=== PATIENT | female | born 2000 | race Caucasian/White ===

== ENCOUNTER 2019-04-03 17:55 | Emergency (ER) | payer SELFPAY ==
[2019-04-03 18:02] VITALS: BP 127/95; PULSE 92; TEMP 98.4; BMI 56.9
--- NOTE | 2019-04-03 18:12 | PDOC ---
Rapid Medical Evaluation Chief Complaint: Pain, Acute Time Seen by Provider: 04/03/19 18:10 Medical Evaluation: Allergies Allergy/AdvReac Type Severity Reaction Status Date / Time No Known Allergies Allergy Verified 11/05/11 21:09 Vital Signs Temp Pulse Resp BP Pulse Ox 98.4 F 92 H 18 127/95 98 04/03/19 18:00 04/03/19 18:00 04/03/19 18:00 04/03/19 18:00 04/03/19 18:00 04/03/19 18:11 Pt c/o: low abd cramping, n/v , unsure if pt on brief exam: vss, mild suprapaubic tenderness Pt ordered for: ua, ucx, upreg pt to proceed to the ED Discharge Disposition - Diagnosis Nausea & vomiting - Discharge Dispostion Condition at time of disposition: Stable - Referrals - Patient Instructions - Post Discharge Activity
[2019-04-03 19:22] LABS: EPI CELLS 3.2 /HPF (0-5/HPF); HYALINE CASTS 24 /lpf (0-8); PH,URINE 5.5 (5.0-8.0); URINE APPEARANCE CLOUDY; URINE BACTERIA 1525.3 /hpf (NEGATIVE); URINE BILIRUBIN NEGATIVE (NEGATIVE); URINE COLOR YELLOW; URINE GLUCOSE (UA) NEGATIVE (NEGATIVE); URINE KETONE NEGATIVE (NEGATIVE); URINE LEUK ESTERASE 2+ (NEGATIVE); URINE NITRITE POSITIVE (NEGATIVE); URINE PROTEIN 1+ (NEGATIVE); URINE RBC 5 /hpf (0-4); URINE UROBILINOGEN 0.2 mg/dL (0.2-1.0); URINE WBC 130 /hpf (0-5)
--- NOTE | 2019-04-03 19:54 | PDOC ---
History of Present Illness - General Chief Complaint: Pain, Acute Stated Complaint: ABD PAIN Time Seen by Provider: 04/03/19 18:10 Past History - Past Medical History Allergies/Adverse Reactions: Allergies Allergy/AdvReac Type Severity Reaction Status Date / Time No Known Allergies Allergy Verified 11/05/11 21:09 Home Medications: Ambulatory Orders Nitrofurantoin Macrocrystal [Nitrofurantoin] 100 mg PO BID 7 Days #14 capsule Phenazopyridine HCl [Pyridium] 100 mg PO TID #9 tablet 04/03/19 COPD: No Disorders: Yes (H/O UTI /VAGINAL DISCHARGE) - Surgical History Cholecystectomy: No - Immunization History Immunization Up to Date: No - Psycho Social/Smoking Cessation Hx Smoking Status: No Smoking History: Never smoked Have you smoked in the past 12 months: No Number of Cigarettes Smoked Daily: 0 Information on smoking cessation initiated: No Hx Alcohol Use: No Drug/Substance Use Hx: No *Physical Exam - Vital Signs Last Vital Signs Temp Pulse Resp BP Pulse Ox 98.4 F 92 H 18 127/95 98 04/03/19 18:00 04/03/19 18:00 04/03/19 18:00 04/03/19 18:00 04/03/19 18:00 ED Treatment Course - ADDITIONAL ORDERS Additional order review: Laboratory Results 04/03/19 04/03/19 19:00 19:00 Urine Color Yellow Urine Appearance Cloudy Urine pH 5.5 Ur Specific [place] 1.010 Urine Protein 1+ H Urine Glucose (UA) Negative Urine Ketones Negative Urine Blood 1+ H Urine Nitrite Positive H Urine Bilirubin Negative Urine Urobilinogen 0.2 Ur Leukocyte Esterase 2+ H Urine WBC (Auto) 130 Urine RBC (Auto) 5 Urine Casts (Auto) 24 U Epithel Cells (Auto) 3.2 Urine Bacteria (Auto) 1525.3 Urine HCG, Qual Negative Discharge - Discharge Information Problems reviewed: Yes Clinical Impression/Diagnosis: Cystitis Condition: Stable Disposition: HOME - Admission No - Additional Discharge Information Prescriptions: Nitrofurantoin Macrocrystal [Nitrofurantoin] 100 mg PO BID 7 Days #14 capsule Phenazopyridine HCl [Pyridium] 100 mg PO TID #9 tablet - Follow up/Referral - Patient Discharge Instructions Patient Printed Discharge Instructions: DI for Acute Cystitis Additional Instructions: You were seen in the ER for abdominal pain and nausea. Your urine showed a urinary tract infection. We are diagnosing you with a cystitis - an infection that affects the bladder. Please take the medication as directed - twice each day for seven days. We are also prescribing you pyridium to help control the pain - please take it as needed, up to 3 times daily. Please see your primary care provider as soon as possible, in the next 7 days. Return to the ER if you develop high fevers, weakness, severe flank pain, intractable vomiting. - Post Discharge Activity
[2019-04-03] MEDS ORDERED: PHENAZOPYRIDINE HCL 100 MG TABLET (FP) PO ONE (19:57)
[2019-04-03] MEDS ORDERED: NITROFURANTOIN MACROCRYSTAL 50 MG CAPSULE (FP) ONE (19:58)
[2019-04-03] MEDS ORDERED: PHENAZOPYRIDINE HCL 100 MG TABLET (FP) ONE (19:59)
[2019-04-03] MEDS ORDERED: NITROFURANTOIN MACROCRYSTAL 50 MG CAPSULE (FP) PO SCH (20:00)
--- NOTE | 2019-04-03 20:03 | PDOC ---
Documentation entered by Darryl Fan SCRIBE, acting as scribe for Chris Ramírez MD. Chris Ramírez MD: This documentation has been prepared by the Meng farrell Nirvannie, SCRIBE, under my direction and personally reviewed by me in its entirety. I confirm that the documentation accurately reflects all work, treatment, procedures, and medical decision making performed by me. Attending Attestation - Resident Resident Name: [email or web address] - ED Attending Attestation I have performed the following: I have examined & evaluated the patient, The case was reviewed & discussed with the resident, I agree w/resident's findings & plan, Exceptions are as noted - HPI HPI: 04/03/19 19:41 The patient is a 18 year old female, with a significant past medical history asthma, GERD, scoliosis, who presents to the emergency department with 4 days bilateral lower abdominal pain described as a burning, cramping sensation. Patient notes the pain to be worsened with eating with associated nausea without emesis. She endorses an associated episode of presyncope described as dizziness and "hot flashes", prompting her arrival to the ED. She denies similar symptoms in the past. She denies recent fevers, chills, vomiting, diarrhea or constipation. She denies recent dysuria, frequency, urgency or hematuria. She denies recent chest pain or shortness of breath. Allergies: NKDA LMP: 03/19 - Physicial Exam PE: 04/03/19 20:02 GENERAL: The patient is awake, alert, and fully oriented, Nontoxic - in no acute distress. HEAD: Normocephalic, atraumatic. LUNGS: Breath sounds equal, clear to auscultation bilaterally. No wheezes, no rhonchi, no rales. HEART: Regular rate and rhythm, normal S1 and S2 without murmur, rub or gallop. ABDOMEN: Soft, mild suprapubic tenderness, no adnexal tenderness, no CVA tenderness EXTREMITIES: Normal range of motion, no edema. NEUROLOGICAL: No facial assymetry, Normal speech, moving all 4 extremities extremities spontaneously and symmetrically PSYCH: Normal mood, normal affect. SKIN: Warm, Dry, normal turgor, - Medical Decision Making 04/03/19 19:37 18y F pmhx asthma, gerd, scoliosis, persents wih complain of b/l suprpubic pain that is constant, 6/10 that is worse with eating associated with nausea and dizziness, hot flashes. denies any vomiting, diarrhea, numbnes/tingling, dysuria , vag discharge, LMP: 03/1904/03/19 20:02 The patient's UA suggestive of UTI we will treat the patient with Pyridium and nitrofurantoin for cystitis
== END 2019-04-03 20:16 | disposition home or self-care (01) ==
LOC: JER 17:55
DX: N30.90 Cystitis, unspecified without hematuria (principal)
CPT/HCPCS: 81003; 84703; 87086; 87186; 99282-25